=== PATIENT | male | born 1965 | race African-American/Black ===

== ENCOUNTER 2017-02-08 12:52 | Emergency (ER) | payer BC, OTHER ==
[2017-02-08 13:00] VITALS: TEMP 98.2
[2017-02-08] MEDS ORDERED: CEFTRIAXONE IM 350 MG/ML SYRINGE IM ONE (13:59)
[2017-02-08] MEDS ORDERED: AZITHROMYCIN 250 MG TAB PO ONE (13:59)
--- NOTE | 2017-02-08 14:04 | EDPHY ---
H & P Time Seen by Provider: 02/08/17 13:15 HPI/ROS: Chief complaint. Testicle pain HPI. 51-year-old male who was exposed to a sexually transmitted disease about 1 month ago. He has had dull pain in both testicles for 2 weeks without any swelling or deformity. Worse the last 2 days. No fever. He thinks that the STD was Trichomonas. He has no urinary symptoms. No discharge from penis. He has been having unprotected intercourse. He was recently checked for HIV which was negative ROS Constitutional. no fever/chills, no weakness Eyes. no problems with vision ENT. no sore throat, no nasal drainage Cardiovascular. no chest pain Respiratory. no shortness of breath, no cough Abdominal. no abdominal pain, no nausea/vomiting, no diarrhea . Bilateral testicle pain without swelling. No troubles urinating MS. no calf pain/swelling, no neck/back pain, no joint pain Skin. no rash Lymph. no swollen glands Neuro. no headache, no dizziness, no difficulty walking or with speech Past Medical/Surgical History: Healthy Social History: Single, daily smoker, no alcohol Smoking Status: Current every day smoker Physical Exam: General Appearance: Pleasant alert well-developed male mild distress vital signs stable Eyes: Pupils equal and round no pallor or injection. ENT, Mouth: Mucous membranes are moist. Respiratory: There are no retractions, lungs are clear to auscultation. Cardiovascular: Regular rate and rhythm. Gastrointestinal: Abdomen is soft and nontender, no masses, bowel sounds normal. Both testicles are normal in orientation and not swollen. Penis is normal. Neurological: Awake and alert, sensory and motor exams grossly normal. Skin: Warm and dry, no rashes. Musculoskeletal: Neck is supple nontender. Extremities symmetrical, full range of motion. Psychiatric: Patient is oriented X 3, there is no agitation. Constitutional: Initial Vital Signs Temperature (C) 36.8 C 02/08/17 12:57 Heart Rate 89 02/08/17 12:57 Respiratory Rate 16 02/08/17 12:57 Blood Pressure 144/86 H 02/08/17 12:57 O2 Sat (%) 98 02/08/17 12:57 O2 Delivery Mode Room Air Allergies/Adverse Reactions: No Known Allergies Allergy (Unverified 03/18/10 20:32) Home Medications: Medication Instructions Recorded epINEPHrine [Epipen] 0.3 mg IM ONETIMEPRN PRN #0 ml 03/18/10 Doxycycline Hyclate 100 mg PO BID #14 tab 02/08/17 Medical Decision Making ED Course/Re-evaluation: Urine is collected for Chlamydia and gonorrhea. Patient is given ceftriaxone 250 mg IM and 1 g azithromycin. He is given a 10 day prescription of doxycycline. Patient and I discussed treatment plan including criteria for return and importance of follow-up and further evaluation. He expresses understanding and agreement Differential Diagnosis: Patient is at risk for STD. He has been exposed. He has unprotected intercourse. I considered epididymitis, testicular torsion and tumor as well - Data Points Laboratory Results: 02/08/17 13:15 C.trachomatis RNA (TMA) Pending N.gonorrhoeae RNA (TMA) Pending Medications Given: Discontinued Medications Azithromycin (Zithromax) 1,000 mg PO EDNOW ONE PRN Reason: Protocol Stop: 02/08/17 14:00 Last Admin: 02/08/17 14:43 Dose: 1,000 mg Ceftriaxone Sodium (Rocephin Im Syringe) 250 mg IM ONCE ONE PRN Reason: Protocol Stop: 02/08/17 14:00 Last Admin: 02/08/17 14:44 Dose: 250 mg Departure - Departure Disposition: Home, Routine, Self-Care Clinical Impression: Epididymitis Condition: Good Instructions: Testicle Pain (ED) Additional Instructions: Doxycycline twice daily for 7 days. Return for worsening symptoms. Follow up with Infectious Disease for continuing symptoms I will also give you the name of regular physician for muscle aches and pain Referrals: NONE *PRIMARY CARE P,. [Primary Care Provider] - As per Instructions Robert Bill MD [Medical Doctor] - As per Instructions Monico Florentino MD [Medical Doctor] - 2-3 days, if not improved Prescriptions: Doxycycline Hyclate 100 mg PO BID #14 tab
[2017-02-08 14:48] VITALS: BP 132/62; PULSE 72; RESP 18; O2SAT 94
[2017-02-09 13:02] LABS: CHLAMYDIA AMPLIFICATION GENPRB NEGATIVE (NEGATIVE)
== END 2017-02-08 14:48 | disposition home or self-care (01) ==
DX: N45.1 Epididymitis (principal); F17.200 Nicotine dependence, unspecified, uncomplicated
CPT/HCPCS: J0696

== ENCOUNTER 2017-03-01 13:59 | Emergency (ER) | payer BC ==
[2017-03-01 14:17] VITALS: O2SAT 97
--- NOTE | 2017-03-01 14:59 | EDPHY ---
H & P Time Seen by Provider: 03/01/17 14:56 HPI/ROS: Chief complaint. Chest pain, shortness of breath HPI. 51-year-old male presents with 1 day history of right upper back pain. It hurts to take a deep breath. Coughing and moving also seems to make it hurt worse. No fever or really increase in cough. Feels is deeper inside. 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 No unusual leg pain or swelling. No he history of asthma but he has had a pneumothorax 15 years ago. The discomfort is like a spasm or cramp and last about 15 seconds and then releases. No similar symptoms previously ROS Constitutional. no fever/chills, no weakness Eyes. no problems with vision ENT. no sore throat, no nasal drainage Cardiovascular. Right back and posterior chest pain Respiratory. Hurts to take a deep breath Abdominal. no abdominal pain, no nausea/vomiting, no diarrhea . no problems urinating MS. no calf pain/swelling, no neck/back pain, no joint pain Skin. no rash Lymph. no swollen glands Neuro. no headache, no dizziness, no difficulty walking or with speech Past Medical/Surgical History: Healthy Social History: Single, daily smoker, no alcohol Smoking Status: Current every day smoker Physical Exam: General Appearance: Alert pleasant well-developed male mild distress vital signs stable Eyes: Pupils equal and round no pallor or injection. ENT, Mouth: Mucous membranes are moist. Respiratory: There are no retractions, lungs are clear to auscultation. Cardiovascular: Regular rate and rhythm. Gastrointestinal: Abdomen is soft and nontender, no masses, bowel sounds normal. Neurological: Awake and alert, sensory and motor exams grossly normal. Skin: Warm and dry, no rashes. Musculoskeletal: Neck is supple nontender. There is tenderness to palpation recreating his symptoms to the medial aspect of his right scapula and along the mid thoracic area. Extremities symmetrical, full range of motion. Psychiatric: Patient is oriented X 3, there is no agitation. Constitutional: Initial Vital Signs Temperature (C) 36.6 C 03/01/17 14:10 Heart Rate 79 03/01/17 14:10 Respiratory Rate 18 03/01/17 14:10 Blood Pressure 153/95 H 03/01/17 14:10 O2 Sat (%) 97 03/01/17 14:10 O2 Delivery Mode Room Air Allergies/Adverse Reactions: No Known Allergies Allergy (Unverified 03/18/10 20:32) Home Medications: Medication Instructions Recorded CYCLOBENZAPRINE HCL [Flexeril] 5 mg PO TIDPRN PRN #10 tab 03/01/17 Medical Decision Making - Diagnostics EKG Interpretation: EKG interpreted by me shows normal sinus axis. LVH voltage. QRS is otherwise normal. There is no significant ST elevation depression. Rate is 60 Imaging Results: Imaging Impressions Chest X-Ray 03/01/17 15:10 Impression: Mild perihilar bronchial wall thickening. There is no explanation for the patient's right lower rib symptoms. Chest x-ray reviewed by me shows no evidence for pneumonia or pneumothorax Procedures: IV normal saline. Ibuprofen and Flexeril orally ED Course/Re-evaluation: Re-evaluation 4:45 p.m.--patient is stable. He and I discussed imaging EKG laboratory evaluation. We discussed treatment plan including criteria for return and importance of follow-up and further evaluation. He expresses understanding and Differential Diagnosis: I think that this is muscular in etiology. I considered pneumothorax, pulmonary embolus, acute coronary syndrome - Data Points Laboratory Results: Laboratory Results 03/01/17 15:55 03/01/17 15:55 03/01/17 03/01/17 03/01/17 15:55 15:55 15:55 WBC 5.52 10^3/uL 10^3/uL (3.80-9.50) RBC 4.65 10^6/uL 10^6/uL (4.40-6.38) Hgb 13.6 g/dL L g/dL (13.7-17.5) Hct 41.1 % % (40.0-51.0) MCV 88.4 fL fL (81.5-99.8) MCH 29.2 pg pg (27.9-34.1) MCHC 33.1 g/dL g/dL (32.4-36.7) RDW 13.5 % % (11.5-15.2) Plt Count 236 10^3/uL 10^3/uL (150-400) MPV 10.4 fL fL (8.7-11.7) Neut % (Auto) 43.8 % % (39.3-74.2) Lymph % (Auto) 39.9 % % (15.0-45.0) [place] % (Auto) 11.1 % % (4.5-13.0) Eos % (Auto) 4.3 % % (0.6-7.6) Baso % (Auto) 0.5 % % (0.3-1.7) Nucleat RBC Rel Count 0.0 % % (0.0-0.2) Absolute Neuts (auto) 2.42 10^3/uL 10^3/uL (1.70-6.50) Absolute Lymphs (auto) 2.20 10^3/uL 10^3/uL (1.00-3.00) Absolute Monos (auto) 0.61 10^3/uL 10^3/uL (0.30-0.80) Absolute Eos (auto) 0.24 10^3/uL 10^3/uL (0.03-0.40) Absolute Basos (auto) 0.03 10^3/uL 10^3/uL (0.02-0.10) Absolute Nucleated RBC 0.00 10^3/uL 10^3/uL (0-0.01) Immature Gran % 0.4 % % (0.0-1.1) Immature Gran # 0.02 10^3/uL 10^3/uL (0.00-0.10) D-Dimer < 0.27 ug/mLFEU ug/mLFEU (0.00-0.50) Sodium 136 mEq/L mEq/L (134-144) Potassium 4.1 mEq/L mEq/L (3.5-5.2) Chloride 105 mEq/L mEq/L (97-110) Carbon Dioxide 19 mEq/l L mEq/l (22-31) Anion Gap 12 mEq/L mEq/L (8-16) BUN 22 mg/dL mg/dL (7-23) Creatinine 1.1 mg/dL mg/dL (0.7-1.3) Estimated GFR > 60 Glucose 92 mg/dL mg/dL (70-100) Calcium 9.4 mg/dL mg/dL (8.5-10.4) Troponin I < 0.012 ng/mL ng/mL (0.000-0.034) Medications Given: Discontinued Medications Cyclobenzaprine HCl (Flexeril) 10 mg PO EDNOW ONE Stop: 03/01/17 15:12 Last Admin: 03/01/17 15:34 Dose: 10 mg Ibuprofen (Motrin) 800 mg PO EDNOW ONE Stop: 03/01/17 15:11 Last Admin: 03/01/17 15:34 Dose: 800 mg Departure - Departure Disposition: Home, Routine, Self-Care Clinical Impression: Thoracic myofascial strain Qualifiers: Encounter type: initial encounter Qualified Code(s): S29.019A - Strain of muscle and tendon of unspecified wall of thorax, initial encounter Condition: Good Instructions: Thoracic Back Strain (ED) Additional Instructions: Ibuprofen 800 mg every 6 hours. Flexeril as needed for muscle spasm. Activity as tolerated. Return for worsening symptoms. Recheck in 2 days if not improved Referrals: NONE *PRIMARY CARE P,. [Primary Care Provider] - As per Instructions [facility] [Outside] - 2-3 days, if not improved Prescriptions: CYCLOBENZAPRINE HCL [Flexeril] 5 mg PO TIDPRN PRN #10 tab PRN Reason: Spasms
[2017-03-01] MEDS ORDERED: IBUPROFEN 200 MG TAB PO ONE (15:10)
[2017-03-01] MEDS ORDERED: CYCLOBENZAPRINE 10 MG TAB PO ONE (15:11)
--- NOTE | 2017-03-01 15:47 | CPEKG ---
Heart Rate: 60 RR Interval: 1000 P-R Interval: 148 QRSD Interval: 104 QT Interval: 424 QTC Interval: 424 P Skippers: 67 QRS Skippers: 68 T Wave Skippers: 49 EKG Severity - ABNORMAL ECG - EKG Impression: SINUS RHYTHM EKG Impression: LEFT VENTRICULAR HYPERTROPHY EKG Impression: ST ELEV, PROBABLE NORMAL EARLY REPOL PATTERN Electronically Signed By: Monico Camacho 01-Mar-2017 16:22:30
[2017-03-01 16:02] LABS: % IMMATURE GRANULYOCYTES 0.4 % (0.0-1.1); ABSOLUTE IMMATURE GRANULOCYTES 0.02 10^3/uL (0.00-0.10); ADD DIFF? NO; ADD MORPH? NO; ADD SCAN? NO; ATYPICAL LYMPHOCYTE FLAG 10 (0-99); FRAGMENT RBC FLAG 0 (0-99); HEMATOCRIT 41.1 % (40.0-51.0); HEMOGLOBIN 13.6 g/dL (13.7-17.5); LEFT SHIFT FLG 0 (0-99); LIPEMIA HEMOLYSIS FLAG 80 (0-99); MEAN CELL HEMOGLOBIN 29.2 pg (27.9-34.1); MEAN CELL HEMOGLOBIN CONCENTR. 33.1 g/dL (32.4-36.7); MEAN CELL VOLUME 88.4 fL (81.5-99.8); MEAN PLATELET VOLUME 10.4 fL (8.7-11.7); PLATELET CLUMPS FLAG 0 (0-99); PLATELET COUNT 236 10^3/uL (150-400); RED BLOOD CELL COUNT 4.65 10^6/uL (4.40-6.38); RED CELL DISTRIBUTION WIDTH 13.5 % (11.5-15.2)
[2017-03-01 16:16] LABS: ANION GAP 12 mEq/L (8-16); CALCIUM 9.4 mg/dL (8.5-10.4); CARBON DIOXIDE 19 mEq/l (22-31); CHLORIDE 105 mEq/L (97-110); CREATININE 1.1 mg/dL (0.7-1.3); GLOMERULAR FILTRATION RATE > 60; GLUCOSE 92 mg/dL (70-100); POTASSIUM 4.1 mEq/L (3.5-5.2); SODIUM 136 mEq/L (134-144)
[2017-03-01 16:28] LABS: TROPONIN I < 0.012 ng/mL (0.000-0.034)
[2017-03-01 17:08] VITALS: BP 152/106; PULSE 71; RESP 15; TEMP 98.8
== END 2017-03-01 17:08 | disposition home or self-care (01) ==
DX: S29.012A Strain of muscle and tendon of back wall of thorax, initial encounter (principal); F17.200 Nicotine dependence, unspecified, uncomplicated; X50.0XXA Overexertion from strenuous movement or load, initial encounter; Y92.69 Other specified industrial and construction area as the place of occurrence of the external cause; Y99.8 Other external cause status; Y93.89 Activity, other specified

== ENCOUNTER 2017-06-25 13:54 | Emergency (ER) | payer SELFPAY ==
[2017-06-25 15:14] VITALS: RESP 16; TEMP 98.1
[2017-06-25 15:33] LABS: COLOR PALE YELLOW; LEUKOCYTE ESTERASE,URINE NEGATIVE (NEGATIVE); NITRITE,URINE NEGATIVE (NEGATIVE)
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
[2017-06-25] MEDS ORDERED: IBUPROFEN 600 MG TAB PO ONE (15:50)
[2017-06-25] MEDS ORDERED: LIDOCAINE 5% 1 EA PATCH TD ONE (15:50)
[2017-06-25 16:27] VITALS: BP 180/105; PULSE 88; O2SAT 94
[2017-06-25] MEDS ORDERED: PATCH REMOVAL 1 EA PATCH TD SCH (21:00)
== END 2017-06-25 16:25 | disposition home or self-care (01) ==
DX: S39.012A Strain of muscle, fascia and tendon of lower back, initial encounter (principal); F17.200 Nicotine dependence, unspecified, uncomplicated; I10 Essential (primary) hypertension; W19.XXXA Unspecified fall, initial encounter